=== PATIENT | female | born 1985 | race Caucasian/White ===

== ENCOUNTER 2017-05-10 04:54 | Inpatient (IN) | payer BC, OTHER ==
[2017-05-10] VITALS (22 sets, daily range): BP systolic 90–113; BP diastolic 51–62; PULSE 76–110; RESP 10–19; TEMP 98.1; Ht 157.5 cm; Wt 64.5 kg
[~2017-05-10] VITALS: Ht 157.5 cm; Wt 64.5 kg
[2017-05-10] MEDS ORDERED: SOD CHLORIDE 0.9% 1,000 ML IV ONE ×3 (05:00→06:00)
[2017-05-10 05:26] LABS: BASOPHIL # 0.1 10^3/ul (0.0-0.1); BASOPHILS % 0.7 % (0.0-2.0); EOSINOPHILS # 0.2 10^3/ul (0.0-0.5); EOSINOPHILS % 2.3 % (0.0-7.0); HEMATOCRIT 32.5 % (37.0-47.0); HEMOGLOBIN 10.7 g/dl (12.0-16.0); LYMPHOCYTES # 4.3 10^3/ul (0.8-2.9); LYMPHOCYTES % 48.1 % (15.0-51.0); MEAN CORPUSCULAR HEMOGLOBIN 30.4 pg (29.0-33.0); MEAN CORPUSCULAR HGB CONC 32.9 g/dl (32.0-37.0); MEAN CORPUSCULAR VOLUME 92.3 fl (82.0-101.0); MEAN PLATELET VOLUME 8.3 fl (7.4-10.4); MONOCYTE # 0.7 10^3/ul (0.3-0.9); MONOCYTES % 8.3 % (0.0-11.0); NEUTROPHIL # 3.6 10^3/ul (1.6-7.5); NEUTROPHILS % 40.3 % (39.0-77.0); PLATELET COUNT 720 10^3/UL (140-415); RED BLOOD COUNT 3.52 10^6/ul (4.20-5.40); RED CELL DISTRIBUTION WIDTH 11.7 % (11.5-14.5)
[2017-05-10] MEDS ORDERED: ACETAMINOPHEN 325 MG TAB PO ONE (05:30)
[2017-05-10 05:44] LABS: ALBUMIN 3.5 g/dl (3.3-4.9); ALBUMIN/GLOBULIN RATIO 1.09; BILIRUBIN,INDIRECT 0.4 mg/dl (0-1.1); BILIRUBIN,TOTAL 0.4 mg/dl (0.2-1.3); CALCIUM 8.5 mg/dl (8.4-10.2); CREATININE 0.79 mg/dl (0.44-1.00); POTASSIUM 3.8 mmol/L (3.5-5.1); TOTAL PROTEIN 6.7 g/dl (6.1-8.1)
--- NOTE | 2017-05-10 05:45 | ERA ---
ER Documentation Chief Complaint Date/Time DATE: 05/10/17 TIME: 05:45 Chief Complaint bib ra from home for vag bleed s/p 12 days ago, no pain HPI The patient is a 31-year-old female, presenting to the ER because of profuse vaginal bleeding prior to arrival. She had a vaginal about 12 days at [facility]. She complains of feeling weakness, denies syncope, near syncope, neck pain, chest pain, dyspnea, abdominal pain, vomiting, dysuria. She does not smoke, drink Past medical history/past surgical history: None ROS All systems reviewed and are negative except as per history of present illness. Allergies Allergies: Coded Allergies: No Known Allergy (Unverified , 05/10/17) PMhx/Soc History of Surgery: No Anesthesia Reaction: No Hx Neurological Disorder: No Hx Respiratory Disorders: No Hx Cardiac Disorders: No Hx Psychiatric Problems: No Hx Miscellaneous Medical Probl: No Hx Alcohol Use: No Hx Substance Use: No Hx Tobacco Use: No Smoking Status: Never smoker Physical Exam Vitals Vital Signs Date Time Temp Pulse Resp B/P Pulse Ox O2 Delivery O2 Flow Rate FiO2 05/10/17 05:11 98.7 60 19 97/64 100 Room Air 05/10/17 04:58 98.5 67 19 86/57 100 Physical Exam Const: No acute distress. Pale Head: Atraumatic. Eyes: Normal Conjunctiva. ENT: Normal External Ears, Nose and Mouth. Neck: Full range of motion. No meningismus. Resp: Clear to auscultation bilaterally. Cardio: Regular rate and rhythm. Abd: Soft, non distended, normal bowel sounds, non tender. Skin: No petechiae or rashes. Back: No midline or flank tenderness. Ext: No cyanosis, or edema. Neur: Awake and alert. No focal deficit Psych: Normal Mood and Affect. Result Diagram: 05/10/17 0507 05/10/17 0507 Results 24 hrs Laboratory Tests Test 05/10/17 05:07 White Blood Count 9.010^3/ul Red Blood Count 3.5210^6/ul Hemoglobin 10.7g/dl Hematocrit 32.5% Mean Corpuscular Volume 92.3fl Mean Corpuscular Hemoglobin 30.4pg Mean Corpuscular Hemoglobin Concent 32.9g/dl Red Cell Distribution Width 11.7% Platelet Count 45665^3/UL Mean Platelet Volume 8.3fl Neutrophils % 40.3% Lymphocytes % 48.1% Monocytes % 8.3% Eosinophils % 2.3% Basophils % 0.7% Nucleated Red Blood Cells % 0.0/100WBC Neutrophils # 3.610^3/ul Lymphocytes # 4.310^3/ul Monocytes # 0.710^3/ul Eosinophils # 0.210^3/ul Basophils # 0.110^3/ul Nucleated Red Blood Cells # 0.010^3/ul Sodium Level 143mmol/L Potassium Level 3.8mmol/L Chloride Level 105mmol/L Carbon Dioxide Level 26mmol/L Anion Gap 16 Blood Urea Nitrogen 17mg/dl Creatinine 0.79mg/dl Glucose Level 98mg/dl Calcium Level 8.5mg/dl Total Bilirubin 0.4mg/dl Direct Bilirubin 0.00mg/dl Indirect Bilirubin 0.4mg/dl Aspartate Amino Transf (AST/SGOT) 20IU/L Alanine Aminotransferase (ALT/SGPT) 29IU/L Alkaline Phosphatase 99IU/L Total Protein 6.7g/dl Albumin 3.5g/dl Globulin 3.20g/dl Albumin/Globulin Ratio 1.09 Current Medications Medications (Trade) Dose Ordered Sig/Mariia Route PRN Reason Start Time Stop Time Status Last Admin Dose Admin Sodium Chloride 1,000 ml @ 1,000 mls/hr Q1H ONCE IV 05/10/17 05:00 05/10/17 05:59 DC 05/10/17 05:28 Sodium Chloride (NS) 1,000 ml @ 1,000 mls/hr Q1H ONCE IV 05/10/17 05:00 05/10/17 05:59 DC 05/10/17 05:29 Acetaminophen 650 mg 650 mg ONCE ONCE PO 05/10/17 05:30 05/10/17 05:46 DC Sodium Chloride (NS) 1,000 ml @ 1,000 mls/hr Q1H ONCE IV 05/10/17 06:00 05/10/17 06:59 05/10/17 05:56 Procedures/MDM Pelvic ultrasound per technologist showed retained products of conception. Official radiologist report is pending MEDICAL MAKING DECISION: The patient is a 31-year-old female, presenting with acute vaginal bleeding due to acute retained products of conception. She was treated with 3 L normal saline with good blood pressure response Consultation: I discussed the present with the on-call admeasurer Dr Vanegas at 5: 45 AM, who was made aware of the patient condition, the ultrasound finding. She accepted the patient for surgical intervention Critical Care: Time: 35 minutes excluding all billable procedures. Treatments/Evaluations: Close monitoring and treatment of unstable vital signs, cardiorespiratory, and neurologic status, while maintaining tight balance of fluid, respiratory, and cardiac interventions. Departure Diagnosis: Primary Impression: Retained products of conception Additional Impressions: Anemia Hypotension JANET WHITE MD May 10, 2017 05:45
[2017-05-10] MEDS ORDERED: IBUP200C PO (06:12)
--- NOTE | 2017-05-10 06:48 | RADRPT ---
PROCEDURE: US Pelvis. CLINICAL INDICATION: Vaginal bleeding, status post TECHNIQUE: Multiple sonographic images of the pelvis were obtained utilizing a transabdominal tech nique. The images were reviewed on a PACS workstation. COMPARISON: None. FINDINGS: The uterus is enlarged in size with a normal appearance of the myometrium. The uterus measures 11.7 x 5.9 x 9.6 cm. The endometrial stripe is heterogeneous in appearance and has the thickness of 26 mm. There is incre ased vascularity within the endometrium, consistent with retained products of conception. The right ovary was not seen. The left ovary measures 3.3 x 1.1 x 2.7 cm. No free fluid is present within the pelvis. RPTAT: AA IMPRESSION: Thickened and heterogeneous endometrium with increased vascularity, suspicious for retained products of conception. Right ovary not visualized. .Jesse Membreno MD, Date Time Electronically viewed and signed by .Jesse Membreno MD, on 05/10/2017 06:47 .S/
[2017-05-10] MEDS ORDERED: DESFLURANE 15 MIN ONE (07:00)
[2017-05-10 10:09] LABS: INR 1.05; PARTIAL THROMBOPLASTIN TIME 25.3 Sec (25.0-35.0); PROTIME 13.7 Sec (12.2-14.2); PT RATIO 1.1
[2017-05-10] MEDS ORDERED: LIDOCAINE 2% (SDV) 5 ML INJ ONE (12:11)
[2017-05-10] MEDS ORDERED: MIDAZOLAM 1 MG/ML 2 ML INJ ONE (12:11)
[2017-05-10] MEDS ORDERED: FENTAnyl 50 MCG/ML VIAL ONE (12:11)
[2017-05-10] MEDS ORDERED: PROPOFOL 20 ML ONE (12:11)
[2017-05-10] MEDS ORDERED: DEXAMETHASONE 4 MG/ML 1 ML INJ ONE (12:20)
[2017-05-10] MEDS ORDERED: ONDANSETRON 4 MG INJ ONE (12:20)
[2017-05-10] MEDS ORDERED: FAMOTIDINE 20 MG INJ ONE (12:20)
[2017-05-10] MEDS ORDERED: METOCLOPRAMIDE 10 MG INJ ONE (12:27)
[2017-05-10] MEDS ORDERED: CEFAZOLIN 1 GM INJ ONE (12:30)
[2017-05-10] MEDS ORDERED: PHENYLephrine (100 MCG/ML) 5ML SYG ONE (12:36)
[2017-05-10] MEDS ORDERED: ONDANSETRON 4 MG INJ IV PRN (13:30)
[2017-05-10] MEDS ORDERED: HYDROmorphONE (0.2 MG/ML) 10ML SYG IV PRN ×2 (13:30)
[2017-05-10] MEDS ORDERED: MEPERIDINE 25 MG INJ IV PRN (13:30)
[2017-05-10] MEDS ORDERED: DIPHENHYDRAMINE 50 MG INJ IV PRN (13:30)
--- NOTE | 2017-05-10 14:14 | OPR ---
Date/Time of Note Date/Time of Note DATE: 05/10/17 TIME: 14:12 Operative Report Preoperative Diagnosis retain tissue Postoperative Diagnosis see path report Operation/Procedure Performed suction curettage Surgeon: VALERIA YBARRA MD Estimated Blood Loss: 10 - 50 ml's Specimens product of conception Complications: None VALERIA YBARRA MD May 10, 2017 14:14
--- NOTE | 2017-05-10 14:16 | PD.PPDC ---
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
[2017-05-10 22:34] LABS: HEMATOCRIT 23.8 % (37.0-47.0); HEMOGLOBIN 7.5 g/dl (12.0-16.0)
[2017-05-11 00:03] VITALS: BP 111/57; PULSE 70; RESP 20
[2017-05-11] MEDS ORDERED: FERROUS GLUCONATE (EC) 325 MG TAB PO SCH (00:30)
[2017-05-11] MEDS ORDERED: IBUPROFEN 600 MG TAB PO PRN (00:30)
[2017-05-11 03:21] VITALS: BP 109/56; RESP 19
[2017-05-11 07:54] VITALS: BP 105/67; RESP 18
--- NOTE | 2017-05-12 02:25 | DS ---
Date/Time of Note Date/Time of Note DATE: 05/12/17 TIME: 02:18 Discharge Summary Admission/Discharge Info Admit Date/Time May 10, 2017 at 05:57 Discharge Date/Time May 11, 2017 at 08:05 Discharge Diagnosis retained placental tissue Patient Condition: Stable Procedures suction curettage Hx of Present Illness 31 y,o 2weeks ago presented ER with profuse vaginal bleeding, u/s revealed retained tissue . suction curettage was prepared Hospital Course unerwent suction curettage on 05/10/17 passing blood clots observed overnight repeat H&H which was down to 7.7/23 from 08/05 but no significant vaginal bleeding noted d/s home with iron supplement will be f/u by her OB Home Meds Reported Medications Ibuprofen* (Ibuprofen*) 200 Mg Capsule, 200 MG PO Q6, CAP 05/10/17 Follow-up Plan 2weeks Primary Care Provider Care Physician No Primary Time spent on discharge: < 30 minutes VALERIA YBARRA MD May 12, 2017 02:25
--- NOTE | 2017-05-12 03:49 | OPR ---
DATE OF OPERATION: 05/10/2017 PREOPERATIVE DIAGNOSIS: Retained placental tissue, 2 weeks status . POSTOPERATIVE DIAGNOSIS: Retained placental tissue, 2 weeks status . Please see pathological report. OPERATION PERFORMED: Suction curettage. SURGEON: Sis Vanegas MD ANESTHESIA: General. ANESTHESIOLOGIST: Jason Davis MD ESTIMATED BLOOD LOSS: 50 mL. OPERATIVE PROCEDURE: Under appropriate induction of general anesthesia, the patient was placed in dorsal lithotomy position. Perineal area and vagina were prepped and draped in usual aseptic manner. On inspection, external genitalia revealed no gross abnormality. Bimanual examination, uterus felt to be 12 weeks of gestational size, firm in consistency. There is no irregularity noted. There is no adnexa pathology. A weighted speculum was introduced, cervix identified, which was patent to a size 12 Hegar dilator and size suction 9 was introduced. The cavity was sounded, which was 11 cm in depth, with the cervical os patent to Hegar dilator, 10. Size 9 suction curette was introduced into the uterine cavity was suctioned in all direction, obtaining a moderate amount of tissue which was followed by sharp curettage in all directions, obtaining additional small amount of tissue which was sent to the Pathology. Due to the manipulation, the episiotomy site incision was disrupted, which was repaired properly using 2-0 chromic catgut. Estimated blood loss approximately 50 mL. The procedure was completed. The instrument count and sponge count was correct and all the instruments were removed from the operative field. The patient withstood the procedure and was sent to the recovery room in stable condition. Dictated By: Sis Vanegas MD /bismark/celeste /Document#: [id number]
== END 2017-05-11 08:05 | disposition home or self-care (01) | DRG 767 ==
LOC: E/R 04:54 → MS2 05:57
PROVIDERS: ADMIT Obstetrics & Gynecology; ATTEND Obstetrics & Gynecology
PROC: 10D17ZZ Extraction of Products of Conception, Retained, Via Natural or Artificial Opening (ICD-10-PCS; principal; 2017-05-10 11:00)
DX: O72.0 Third-stage hemorrhage (principal); I95.9 Hypotension, unspecified; D64.9 Anemia, unspecified
CPT/HCPCS: 36415; 76856; 80053; 85014; 85018; 85025; 85610; 85730; 86850; 86900; 86901; 88305; J0690; J1100; J2175; J2250; J2370; J2405; J2765; J3010; J7030